=== PATIENT | female | born 1970 | race Caucasian/White ===

== ENCOUNTER 2020-08-08 17:45 | Observation (INO) | payer BC, OTHER ==
[2020-08-08] MEDS ORDERED: Acetaminophen 325 MG TAB PO PRN (18:04)
[2020-08-08] MEDS ORDERED: Ondansetron PF 4 MG/2 ML Vial IVP PRN (18:04)
[2020-08-08] MEDS ORDERED: Senokot S 8.6-50 MG TAB PO PRN (18:04)
[2020-08-08] MEDS ORDERED: Calcium Carbonate 500 MG ChewTAB PO PRN (18:04)
[2020-08-08] MEDS ORDERED: Nicotine 14 MG PATCH TD SCH (18:30)
[2020-08-08 19:04] LABS: Troponin I Less than 0.010 ng/mL (< 0.028)
[2020-08-08] MEDS ORDERED: Metoprolol Tartrate 25 MG TAB PO SCH (21:00)
[2020-08-08 21:40] LABS: Troponin I Less than 0.010 ng/mL (< 0.028)
[2020-08-08] MEDS: Nitroglycerin 2% Ointment 1 INCH/1 GM Packet TOP SCH (22:34)
[2020-08-08] MEDS ORDERED: Sodium Chloride 0.9% 1,000 ML IV SCH (23:00)
[2020-08-09 05:00] VITALS: BMI 26.2
[2020-08-09] MEDS: Nitroglycerin 2% Ointment 1 INCH/1 GM Packet TOP SCH (05:24)
[2020-08-09 05:33] LABS: #Basophils 0.1 10x3/uL (0.0-0.2); #Eosinphils 0.8 10x3/uL (0.0-0.5); #Monocytes 0.6 10x3/uL (0.0-1.1); #Neutrophils 3.3 10x3/uL (1.5-8.4); %Basophils 1.2 % (0.0-2.0); %Eosinophils 11.1 % (0.0-6.0); %Lymphocytes 35.4 % (18.0-47.0); %Monocytes 8.4 % (0.0-10.0); %Neutrophils 43.6 % (40.0-75.0); Hemoglobin 14.3 g/dL (12.0-15.5); Mean Corpuscular HGB CONC 34.6 g/dL (32.0-36.0); Mean Corpuscular Hemoglobin 30.1 pg (27.0-33.0); Mean Corpuscular Volume 86.9 fl (81.6-98.3); Mean Platelet Volume 11.6 fl (7.4-10.4); Platelet Count 225 10x3/uL (150-450); RBC Distribution Width 12.6 % (11.5-14.5); Red Blood Cell (RBC) Count 4.75 10x6/uL (3.90-5.03); White Blood Cell (WBC) Count 7.6 10x3/uL (3.5-10.5)
[2020-08-09 05:49] LABS: ALT (SGPT) 10 U/L (8-55); AST (SGOT) 12 U/L (5-34); Albumin 3.8 g/dL (3.5-5.0); Alkaline Phosphatase 54 U/L (40-110); Anion Gap 14 mmol/L (10-20); BUN (Urea Nitrogen) 11 mg/dL (7.0-18.7); Bilirubin, Total 0.5 mg/dL (0.2-1.2); Calc. Creatinine Clearance 94 mL/min (70-130); Calcium 8.9 mg/dL (7.8-10.44); Carbon Dioxide 20 mmol/L (22-29); Cardiac Risk 4.8 (Less than 4.5); Chloride 108 mmol/L (98-107); Cholesterol 157 mg/dl (< 200 Desired); Globulin 2.4 g/dL (2.4-3.5); Glucose 98 mg/dL (70-105); HDL Cholesterol 33 mg/dL (>60 Neg Risk); LDL Cholesterol, Calculated 92 mg/dL; Potassium 3.9 mmol/L (3.5-5.1); Protein, Total 6.2 g/dL (6.0-8.3); Sodium 138 mmol/L (136-145); Triglycerides 161 mg/dL (Less than 150)
[2020-08-09] MEDS ORDERED: Enoxaparin Sodium 40 MG/0.4 ML SYRINGE SC SCH (09:00)
[2020-08-09] MEDS ORDERED: Aspirin 325 MG TAB PO SCH (09:00)
[2020-08-09 11:12] LABS: Hemoglobin A1c 5.4 % (4.0-6.0)
[2020-08-09 12:19] VITALS: BP 126/74; TEMP 97.4
== END 2020-08-09 18:28 | disposition home or self-care (01) ==
LOC: CSHTELE 17:45 → INTOOBSV 17:45
PROVIDERS: ADMIT Internal Medicine; ATTEND Family Medicine
DX: I25.119 Atherosclerotic heart disease of native coronary artery with unspecified angina pectoris (principal); R07.89 Other chest pain; Z79.899 Other long term (current) drug therapy; Z79.82 Long term (current) use of aspirin; F41.9 Anxiety disorder, unspecified; F32.9 Major depressive disorder, single episode, unspecified; F17.210 Nicotine dependence, cigarettes, uncomplicated
CPT/HCPCS: 80053; 80061; 83036; 84484; 85025; 93306; 94760; G0378